=== PATIENT | female | born 1980 | race Caucasian/White ===

== ENCOUNTER 2022-07-04 07:48 | Outpatient (REF) | payer MEDICAID, SELFPAY ==
--- NOTE | ~2022-07-04 | MM_ITS ---
EXAMINATION: MM SCREENING DIGITAL BREAST TOMOSYNTHESIS, BILATERAL CLINICAL INFORMATION: Screening. Asymptomatic. Age 41. No prior breast imaging. No known family history breast cancer. The lifetime risk of breast cancer based on the Tyrer-Cuzick Model is 11%. COMPARISON: None (current study represents initial baseline exam). TECHNIQUE: Digital breast tomosynthesis is performed in both the craniocaudal and mediolateral oblique views along with computer-aided detection (CAD). Synthesized 2D images are generated from the tomosynthesis. FINDINGS: There are scattered areas of fibroglandular density (ACR BI-RADS breast composition Category b). There are no significant masses, abnormal calcifications, or other abnormalities. The axilla and skin contours are unremarkable. MM/MM tomosynthesis screening BI IMPRESSION: No mammographic evidence of malignancy. ASSESSMENT: BI-RADS 1: Negative RECOMMENDATION: Routine annual mammography screening. This patients information was entered into a reminder system with a target due date for their next mammogram.
== END 2022-07-04 07:49 | disposition home or self-care (01) ==
LOC: HO.MAMMO 07:48
PROVIDERS: PCP Student in an Organized Health Care Education/Training Program; Visit Provider Student in an Organized Health Care Education/Training Program
DX: Z12.31 Encounter for screening mammogram for malignant neoplasm of breast (principal)
CPT/HCPCS: 77063; 77067

== ENCOUNTER 2022-07-30 13:58 | Outpatient (REF) | payer MEDICAID, SELFPAY ==
--- NOTE | ~2022-07-30 | XR_ITS ---
EXAMINATION: XR SACROILIAC JOINTS CLINICAL INFORMATION: Sacroiliitis. COMPARISON: None TECHNIQUE: AP and bilateral Judet views of the sacroiliac joints FINDINGS: Bones and soft tissues are normal. No fracture. Alignment is anatomic. Sacroiliac joint spaces are well-maintained without erosions or surrounding sclerosis. The bilateral hip joint spaces are well-maintained. A surgical clip is seen within the left hemipelvis. XR/XR sacroiliac joint min 3V IMPRESSION: Normal sacroiliac joints.
--- NOTE | ~2022-07-30 | XR_ITS ---
EXAMINATION: XR LUMBOSACRAL SPINE WITH OBLIQUES CLINICAL INFORMATION: Lumbar spondylosis without myelopathy or radiculopathy. COMPARISON: Radiographs dated 06/12/2011. TECHNIQUE: AP, both oblique, and lateral views of the lumbar spine. Lateral view of the lumbosacral junction. FINDINGS: Vertebral body heights are normal. There is a moderately severe thoracolumbar levoscoliosis. There is rightward disc space narrowing at L2-L3, with a 4 mm retrolisthesis. The remaining disc spaces are well-maintained. No acute fracture or spondylolisthesis is seen. There is no spondylolysis defect on the oblique views. There is multi-level mild thoracolumbar spondylosis. The posterior elements are intact. The paravertebral soft tissues are unremarkable. There are abdominal and pelvic surgical clips. XR/XR lumbar spine 6V w bending IMPRESSION: 1. A moderately severe thoracolumbar levoscoliosis is seen. 2. There is moderate degenerative disc disease at L2-L3. 3. No fracture or spondylolisthesis is seen. There is no spondylolysis defect. 4. There is multi-level mild thoracolumbar spondylosis.
== END 2022-07-30 13:59 | disposition home or self-care (01) ==
LOC: HO.XRAY 13:58
PROVIDERS: PCP Student in an Organized Health Care Education/Training Program; Visit Provider Nurse Practitioner Family
DX: M47.816 Spondylosis without myelopathy or radiculopathy, lumbar region (principal); M54.16 Radiculopathy, lumbar region; M46.1 Sacroiliitis, not elsewhere classified; M62.830 Muscle spasm of back; E66.01 Morbid (severe) obesity due to excess calories; Z68.41 Body mass index [BMI] 40.0-44.9, adult
CPT/HCPCS: 72114; 72202; 99202

== ENCOUNTER 2022-09-16 15:55 | Outpatient (REF) | payer MEDICAID, SELFPAY ==
--- NOTE | ~2022-09-16 | MR_ITS ---
MR LUMBAR SPINE WITHOUT CONTRAST CLINICAL INFORMATION: Spondylosis without myelopathy or radiculopathy. COMPARISON: Lumbar spine radiographs 07/30/2022. TECHNIQUE: MRI of the lumbar spine was obtained using routine sequences without contrast. 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 5 nonrib-bearing lumbar-type vertebral bodies. There is grade 1 retrolisthesis of L2 on L3 and L3 on L4. The vertebral body heights are maintained. There is moderate disc volume loss at L2-L3 and there is mild disc volume loss at L3-L4. Disc desiccation at both of these levels. The remaining discs remain well-hydrated. There Modic type I endplate signal changes at T10-T11 and L2-L3. No additional bone marrow edema. No acute fractures. Conus terminates at the T12 level. Extrarenal pelvis on the right side. No significant extraspinal soft tissue findings. L1-L2: Disc contour is normal. No central canal stenosis and no foraminal stenosis. L2-L3: There is a diffuse annular disc bulge with superimposed right and left paracentral disc protrusions contacting and resulting in mild mass effect on the traversing L3 nerve roots within the subarticular zones bilaterally. There are also right greater than left lateral disc protrusions resulting in moderate bilateral foraminal stenosis and mass effect on the extraforaminal L2 nerve roots bilaterally. L3-L4: There is a large soft left paracentral/left lateral disc protrusion resulting in compression of the traversing left L4 nerve root within the left subarticular zone and severe left-sided foraminal stenosis with compression of the exiting left L3 nerve root. L4-L5: There is a diffuse annular disc bulge and there is severe bilateral facet arthropathy and ligamentum flavum thickening. Narrowing of the central canal. Mild to moderate bilateral foraminal encroachment. Far right and left lateral disc osteophyte protrusions contact the extraforaminal L4 nerve roots bilaterally. L5-S1: Slight annular disc bulge. Bilateral facet arthropathy. No central canal stenosis and no foraminal stenosis. MR/MR lumbar spine wo con IMPRESSION: * There is transitional anatomy. 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 Please correlate with plain films prior to any percutaneous or surgical intervention. * At L2-L3, there are right and left paracentral disc protrusions contacting and resulting in mild mass effect on the traversing L3 nerve roots within the subarticular zones bilaterally. There are also right greater than left lateral disc protrusions resulting in moderate bilateral foraminal stenosis and mass effect on the extraforaminal L2 nerve roots bilaterally. * At L3-L4, there is a large soft left paracentral/left lateral disc protrusion resulting in compression of the traversing left L4 nerve root within the left subarticular zone and severe left-sided foraminal stenosis with compression of the exiting left L3 nerve root. * At L4-L5, far right and left lateral disc osteophyte protrusions contact the extraforaminal L4 nerve roots bilaterally.
== END 2022-09-16 15:56 | disposition home or self-care (01) ==
LOC: HO.MRI 15:55
PROVIDERS: Visit Provider Nurse Practitioner Family
DX: M47.816 Spondylosis without myelopathy or radiculopathy, lumbar region (principal); M41.85 Other forms of scoliosis, thoracolumbar region; M62.830 Muscle spasm of back
CPT/HCPCS: 72148

== ENCOUNTER → 2022-10-15 15:46 | Outpatient (BNVA) | payer MEDICAID, SELFPAY | PROVIDERS: PCP Student in an Organized Health Care Education/Training Program; Visit Provider Nurse Practitioner Family | DX: Z13.89 Encounter for screening for other disorder (principal) ==

== ENCOUNTER 2022-10-30 10:07 | Day surgery (SDC) | payer MEDICAID, SELFPAY ==
[2022-10-26 15:24] VITALS: BMI 45.5
--- NOTE | ~2022-10-30 | FL_ITS ---
EXAMINATION: XR FLUOROSCOPY WITH IMAGES CLINICAL INFORMATION: Low back pain. COMPARISON: None. TECHNIQUE: Fluoroscopy Supervised By: Dr. Patrick Garcias. Fluoroscopy Time: 0.6 minutes. Cumulative Dose: 13.5 mGy. DAP: 3.70 Gycm2. Images: 2. FINDINGS: There are 2 digital images obtained revealing needle positioned inferior to L3 vertebra with contrast opacifying left epidural space and posterior lateral soft tissues. FL/FL guidance in OR IMPRESSION: Fluoroscopy was provided to referring physician for pain management.
[2022-10-30 10:09] VITALS: BP 140/79; PULSE 98; RESP 20; TEMP 36.9; O2SAT 97
[2022-10-30] MEDS: Lactated Ringers 1,000 ML 50 ML IVCONT (10:32)
--- NOTE | 2022-10-30 10:43 | P.CONAN_ITS ---
HPI - Anesthesia Eval Consult details Narrative: 41 yr old morbidly obese femalefor [facility] Active Problems Active Problems: All Active Problems (Updated 10/26/22 @ 15:22 by Tri Meyers RN) Lumbar spondylosis (Acute) Left lumbar radiculopathy (Acute) Sacroiliitis (Acute) Muscle spasm of back (Acute) Morbid obesity with BMI of 40.0-44.9, adult (Acute) Levoscoliosis of thoracolumbar spine (Acute) Spinal stenosis of lumbar region without neurogenic claudication (Acute) Past Medical History Medical History (Updated 10/26/22 @ 15:22 by Tri Meyers RN) GERD (gastroesophageal reflux disease) Hiatal hernia Hypothyroidism Left hip pain Low back pain Family History Family history of problems with anesthesia: No Surgical History Surgical History (Updated 10/26/22 @ 15:22 by Tri Meyers RN) History of carpal tunnel release of both wrists Hx of bariatric surgery Hx of cholecystectomy Hx of tubal ligation History of Problems with Anesthesia: No Social History Social History Are you a primary day care provider to a significant other at home: Yes (16 month old child) Do you presently have visiting nurse or other home services: No Patient Tobacco Use Status: Never used Tobacco Use of substances other than those prescribed or required for medical reasons: No Have you been hit, kicked, punched, or otherwise hurt by someone within the past year? If so, by whom?: No Are you DNR?: No Advance Directives: No Advance Directives Information Provided: Yes Advance Directives on File: No Recently lost weight without trying: No Nutrition Risks: No Nutritional Risk Patient : No FDLMP: 10/14/2022 : No Poor oral hygiene: No Meds Allergies Allergy/AdvReac Type Severity Reaction Status Date / Time No Known Allergies Allergy Verified 10/26/22 15:22 Active Medications: Current Medications Lactated Ringer's (Lr) 1,000 mls @ 50 mls/hr IVCONT .Q20H KAIN Last Admin: 10/30/22 10:32 Dose: 50 mls/hr Home Medications Medication Instructions Recorded Confirmed Last Taken Type levothyroxine 200 mcg tablet 200 mcg PO DAILY 07/30/22 10/26/2223 History levothyroxine 50 mcg tablet 50 mcg PO DAILY 07/30/22 10/26/22 10/29/22 History Exam Exam Date and Time: October 30, 2022 1043 Height,Weight and Vital Signs: Height 5 ft 2 in Weight 112.945 kg Last Vital Signs Temp 98.5 F 10/30/22 10:09 Pulse 98 10/30/22 10:09 Resp 20 10/30/22 10:09 BP 140/79 H 10/30/22 10:09 Pulse Ox 97 10/30/22 10:09 O2 Del Method 10/30/22 10:09 Airway Mallampati Class: II TM Dist: >3cm Neck ROM: Full Heart: rrr Lungs: cta Assessment and Plan Assessment Anesthesia Assessment: Anesthesia Plan Discussed and Chart Reviewed Final Anesthetic Review Family History of Problems with Anesthesia: No History of Problems with Anesthesia: No NPO: Yes ASA Class: II Final Preanesthetic Review: No Changes in Pt Med Stat, Meds/Allgs Chart Reviewed, Consent Obtained/Reviewed and Anes Risks/Benef Reviewed Patient Risk: Low Procedure Risk: Low Anesthetic Plan Anesthetic Plan: MAC: and Agree w/ Assess. and Plan Disposition: Standard PACU
--- NOTE | 2022-10-30 10:52 | MHC.SHP ---
Pre-Procedural Eval Section A Date of Service: 10/30/22 The patient is an INPATIENT: No Changes since office visit: Yes Patient answered all questions The History & Physical has been completed within 30 days and I have reviewed it.: No Section B Chief Complaint: Radiculopathy, lumbar region Details of Present Illness: as above Relevant Family History (Specify if Yes): No Relevant Social History: None Present Medications: None Medical History: No relevant PMH History of Previous Operations: No relevant previous surgery Allergies: Allergies Allergy/AdvReac Type Severity Reaction Status Date / Time No Known Allergies Allergy Verified 10/26/22 15:22 Review of Systems Sugical H&P ROS: Negative: Constitution, Cardiovascular, Respiratory, Neurological, Psychiatric, Hem-Onc, Allergic/Immunologic, Gastrointestinal, Genitourinary, Musculoskeletal, Integumentary, Endocrine and Eyes/Ears/Nose/Throat Exam Surgical H&P Exam: Normal: HEENT, Normal: Heart, Normal: Lungs, Normal: Extremities, Normal: Abdomen, Normal: Skin and Normal: Neurological Plan Diagnosis/Plan: Unchanged I have reviewed the history and physical and performed a pertinent physical examination on my patient. No changes have occurred unless specified. Time Spent With Patient Time: Total time managing care of this patient today ____ minutes.
--- NOTE | 2022-10-30 10:54 | W.PM.OPN ---
Operative Note Operative Note Date of Service: 10/30/22 Narrative: Transforaminal Left L3- L4 epidural steroid injection ? Informed consent was thoroughly explained to the patient before the procedure.? The patient came to the operating room.? She was positioned prone on operating table with a pillow under her abdomen.? Time-out was performed delineating correct site and side of the procedure, nature of the injection, name and date of of the patient. ASA monitors were applied and the patient was minimally sedated. ? The lower back of the patient was prepped with ChloraPrep and draped with sterile utility towels.? C-arm was brought over the operating field and sq picture of [id number] was demonstrated on the screen.?Transitional anatomy was noted with hypoplastic ribs at T12 as dictated in the patient's MRI. The left side was chosen as the side of the injection.The square image of L3 vertebra was demonstrated on the screen.? Tilting machine ipsilateral to the left at the level of L3 1st the most prominent picture of the left L3 pedicle was obtained on the screen.? 3 mm below the level of the lowest point of the pedicle projection to the skin small amount of lidocaine 1% 3-4 cc was injected to anesthetize the skin.? After that 5 inch 22 gauge Quincke point needle was inserted through the skin wheal and was advanced to the L3- L4 foramina on anterior posterior, Lateral and oblique views intermittently in tunnel vision fashion..? When tip of the needle entered most superior lateral portion of the foramina projection on the lateral view, the C-arm was returned to AP view, aspiration was performed demonstrating no blood and no CSF aspirate. injection of the contrast was performed demonstrating epidural and perineural spread of the contrast, Live contrast injection spread was observed on the screen and no intrathecal and no vsular run-off of the contrast was noted..? After that injection of the treatment medicine 4 cc of lidocaine 1% preservative-free mixed with Kenalog 40 mg was injected into the foramina.? Injection of the contrast and injection of the treatment medicine was observed live on the screen.? No intrathecal and no intravascular spread of the contrast was noted. ? Upon completion of the procedure sterile Band-Aids were applied. The patient tolerated procedure well exhibited NO neurological deficits postoperatively in PACU.
[2022-10-30 11:47] VITALS: BP 118/69; PULSE 86; RESP 17; TEMP 36.8; O2SAT 100
--- NOTE | 2022-10-30 11:52 | P.BOP_ITS ---
Brief Operative Note Date of Service: 10/30/22 Pre-op diagnosis: spondylosis with radiculopathy Post-op diagnosis: same Procedure: transforaminal epidural steroid injection L3- L4 on the left. Surgeon: Patrick Garcias MD Anesthesia: MAC and local Was an Casing Running Machine Tender used for this Procedure?: No Estimated blood loss (mL): 0 Condition: stable Disposition: PACU
[2022-10-30 12:02] VITALS: BP 124/68; PULSE 81; RESP 18; O2SAT 100
[2022-10-30 12:16] VITALS: BP 132/67; PULSE 80; RESP 18; TEMP 36.7; O2SAT 98
== END 2022-10-30 13:14 | disposition home or self-care (01) ==
PROVIDERS: PCP Student in an Organized Health Care Education/Training Program; Visit Provider Anesthesiology
PROC: (CPT 64483; principal; 2022-10-30 11:10)
DX: M47.816 Spondylosis without myelopathy or radiculopathy, lumbar region (principal); M46.1 Sacroiliitis, not elsewhere classified; M62.830 Muscle spasm of back; M41.85 Other forms of scoliosis, thoracolumbar region; M48.061 Spinal stenosis, lumbar region without neurogenic claudication; M54.16 Radiculopathy, lumbar region; E66.01 Morbid (severe) obesity due to excess calories; Z68.41 Body mass index [BMI] 40.0-44.9, adult; Z98.84 Bariatric surgery status
CPT/HCPCS: 64483; J2795; J3301; Q9967

== ENCOUNTER → 2022-12-03 15:13 | Outpatient (BNVA) | payer MEDICAID, SELFPAY | PROVIDERS: PCP Student in an Organized Health Care Education/Training Program; Visit Provider Nurse Practitioner Family | DX: M47.26 Other spondylosis with radiculopathy, lumbar region (principal); M46.1 Sacroiliitis, not elsewhere classified; M62.830 Muscle spasm of back; M41.85 Other forms of scoliosis, thoracolumbar region; M48.061 Spinal stenosis, lumbar region without neurogenic claudication | CPT/HCPCS: 99212 ==

== ENCOUNTER 2023-01-27 13:18 | Day surgery (SDC) | payer MEDICAID, SELFPAY ==
[2023-01-25 14:45] VITALS: BMI 39.6
--- NOTE | 2023-01-26 10:27 | HO.ANESPROP2 ---
HPI - Anesthesia Eval Consult details Narrative: 42yo F for Left therapeutic Sacroiliac Joint Steroid Injection s/p epidural injection 10/2022 with MAC PMFSH Active Problems Active Problems: All Active Problems (Updated 12/03/22 @ 15:57 by MESSI Reyes) Lumbar spondylosis (Acute) Left lumbar radiculopathy (Acute) Sacroiliitis (Acute) Muscle spasm of back (Acute) Levoscoliosis of thoracolumbar spine (Acute) Spinal stenosis of lumbar region without neurogenic claudication (Acute) Past Medical History Medical History GERD (gastroesophageal reflux disease) Hiatal hernia Hypothyroidism Left hip pain Low back pain Morbid obesity with BMI of 40.0-44.9, adult Family History Family history of problems with anesthesia: No Surgical History Surgical History (Updated 01/27/23 @ 13:27 by Char Saucedo, RN) History of carpal tunnel release of both wrists Hx of bariatric surgery Hx of section Hx of cholecystectomy Hx of tubal ligation History of Problems with Anesthesia: No Social History Social History Are you a primary emergency care attendant to a significant other at home: Yes (16 month old child) Do you presently have visiting nurse or other home services: No Patient Tobacco Use Status: Never used Tobacco Meds Allergies Allergy/AdvReac Type Severity Reaction Status Date / Time No Known Allergies Allergy Verified 01/27/23 13:32 Home Medications Medication Instructions Recorded Confirmed Last Taken Type levothyroxine 200 mcg tablet 200 mcg PO DAILY 07/30/22 01/27/23 01/27/23 06:00 History levothyroxine 50 mcg tablet 50 mcg PO DAILY 07/30/22 01/27/23 01/27/23 06:00 History magnesium glycinate 100 mg tablet 200 mg PO DAILY PRN Muscle Spasm 01/27/23 01/27/23 Unknown History Exam Exam Date and Time: January 26, 2023 1027 Height,Weight and Vital Signs: Height 5 ft 2 in Weight 98.203 kg Assessment and Plan Assessment Anesthesia Assessment: Chart Reviewed Final Anesthetic Review Family History of Problems with Anesthesia: No History of Problems with Anesthesia: No
--- NOTE | ~2023-01-27 | FL_ITS ---
EXAMINATION: XR FLUOROSCOPY WITH IMAGES CLINICAL INFORMATION: Therapeutic SI joint injection. COMPARISON: None available. TECHNIQUE: Fluoroscopy Supervised By: Dr. Colby Whitfield. Fluoroscopy Time: 0.3 minutes. Cumulative Dose: 10.5 mGy. DAP: 1.15 Gycm2. Images: 2. FINDINGS: Images show a needle at the level of the left sacral ala. FL/FL guidance in OR IMPRESSION: Technical assistance and equipment provided by the Department of Radiology during procedural fluoroscopy, as above. Please see procedure report for further details.
[2023-01-27 13:28] VITALS: BMI 38.2
[2023-01-27 13:34] VITALS: BP 128/53; PULSE 71; RESP 16; TEMP 36.4; O2SAT 98
[2023-01-27] MEDS: Lactated Ringers 1,000 ML 100 ML IVCONT (13:48)
--- NOTE | 2023-01-27 15:13 | MHC.SHP ---
Pre-Procedural Eval Section A Date of Service: 01/27/23 The patient is an INPATIENT: No Changes since office visit: Yes Patient answered all questions The History & Physical has been completed within 30 days and I have reviewed it.: Yes Section B Chief Complaint: Sacroiliitis, not elsewhere classified Relevant Family History (Specify if Yes): No Relevant Social History: None Present Medications: see Short Stay Collaborative assessment Medical History: No relevant PMH History of Previous Operations: No relevant previous surgery Allergies: Allergies Allergy/AdvReac Type Severity Reaction Status Date / Time No Known Allergies Allergy Verified 01/27/23 13:32 Review of Systems Sugical H&P ROS: Negative: Constitution, Cardiovascular and Respiratory Exam Surgical H&P Exam: Normal: HEENT and Normal: Heart Plan Diagnosis/Plan: Unchanged I have reviewed the history and physical and performed a pertinent physical examination on my patient. No changes have occurred unless specified. Time Spent With Patient Time: Total time managing care of this patient today ____ minutes.
--- NOTE | 2023-01-27 15:13 | PM.OP ---
Brief Operative Note Date of Service: 01/27/23 Pre-op diagnosis: Sacroiliitis Post-op diagnosis: same Procedure: Left sacroiliac joint steroid injection Implants: None Surgeon: Colby Whitfield MD Anesthesia: MAC Was an Multimedia Developer used for this Procedure?: No Estimated blood loss (mL): 0 Pathology: none sent Condition: stable Disposition: PACU
--- NOTE | 2023-01-27 15:14 | P.OP_ITS ---
Operative Note Operative Note Date of Service: 01/27/23 Narrative: Sacroiliac Joint Injection, Left The procedure, its benefits, and its risks were explained and written informed consent was obtained from the patient. Immediately prior to starting the procedure, a time-out safety check was conducted. The patient's identification, procedure name, procedure site, and procedure laterality were confirmed with the patient. ? Patient was placed prone on the fluoroscopy table and the lumbosacral area was prepped using ChloraPrep and draped with sterile drapein standard fashion. Patient was sedated by the property underwriter. The C-arm was rotated in a contralateral oblique fashion until the medial border of the iliac crest no longer foreshadowed the posterior sacroiliac joint line. The skin and subcutaneous tissue was anesthetized using 1 mL of 0.75% plain lidocaine with 1.5-inch 25- gauge needle in the middle region of the joint line.? A 3.5-inch 22-gauge spinal needle with small bend on the tip was slowly advanced towards the joint line, coaxial to the x-ray beam. Once bony content was obtained, the needle was easily slid into the intra-articular space.? Intra-articular needle position was confirmed using lateral fluoroscopy.? A total volume of 2.5mL of solution cont aining 60 mg Depomedrol and rest 0.5% of ropivacaine was injected intra- articularly. The stylet was reinserted and needle was removed. The patient tolerated the procedure well. She was brought to the PACU in stable condition. Patient denied any lower extremity weakness or numbness. Patient was observed for 30 min and was discharged after fulfilling the standard discharge criteria.
[2023-01-27 15:20] VITALS: BP 123/68; PULSE 73; RESP 16; TEMP 36.1; O2SAT 95
[2023-01-27 15:35] VITALS: BP 136/72; PULSE 60; RESP 14; TEMP 36.6; O2SAT 97
--- NOTE | 2023-01-27 15:35 | HO.POSTANES ---
Post Anesthesia Evaluation Post Anesthesia Evaluation Vital Signs: Vital Signs Temp Pulse Resp BP Pulse Ox O2 Del Method 01/27/23 15:20 97 F 73 16 123/68 95 Room Air 01/27/23 13:34 97.6 F 71 16 128/53 L 98 Room Air Anesthesia: Monitored Mental Status: Awake Pain Control: Satisfactory Nausea/Vomiting: None Hydration: Adequate Anesthesia-Related Issues: No Anes. Related Issues
== END 2023-01-27 16:00 | disposition home or self-care (01) ==
PROVIDERS: PCP Student in an Organized Health Care Education/Training Program; Visit Provider Internal Medicine
PROC: 3E0U33Z Introduction of Anti-inflammatory into Joints, Percutaneous Approach (ICD-10-PCS; CPT 27096; principal; 2023-01-27 14:20)
DX: M46.1 Sacroiliitis, not elsewhere classified (principal); M47.26 Other spondylosis with radiculopathy, lumbar region; M48.061 Spinal stenosis, lumbar region without neurogenic claudication
CPT/HCPCS: 27096; J1040

== ENCOUNTER → 2023-03-04 13:55 | Outpatient (BNVA) | payer MEDICAID, SELFPAY | PROVIDERS: PCP Student in an Organized Health Care Education/Training Program; Visit Provider Nurse Practitioner Family | DX: M47.26 Other spondylosis with radiculopathy, lumbar region (principal); M46.1 Sacroiliitis, not elsewhere classified; M41.85 Other forms of scoliosis, thoracolumbar region; M48.061 Spinal stenosis, lumbar region without neurogenic claudication; M62.830 Muscle spasm of back; E66.01 Morbid (severe) obesity due to excess calories; Z68.39 Body mass index [BMI] 39.0-39.9, adult; Z98.84 Bariatric surgery status; Z98.890 Other specified postprocedural states | CPT/HCPCS: 99212 ==

== ENCOUNTER 2023-07-10 07:35 | Outpatient (REF) | payer OTHER, SELFPAY | END 2023-07-10 07:36 | disposition home or self-care (01) | LOC: HO.MAMMO 07:35 | PROVIDERS: PCP Student in an Organized Health Care Education/Training Program; Visit Provider Student in an Organized Health Care Education/Training Program | DX: Z12.31 Encounter for screening mammogram for malignant neoplasm of breast (principal) | CPT/HCPCS: 77063; 77067 ==

== ENCOUNTER → 2023-07-10 07:45 | Outpatient (BNV) | payer SELFPAY | PROVIDERS: PCP Student in an Organized Health Care Education/Training Program; Visit Provider Radiology Diagnostic Radiology | DX: Z12.31 Encounter for screening mammogram for malignant neoplasm of breast (principal) | CPT/HCPCS: 77063; 77067 ==

== ENCOUNTER 2023-07-16 13:04 | Outpatient (AMB) | payer MEDICAID, SELFPAY ==
--- NOTE | 2023-07-16 13:08 | A.OFFVIS_ITS ---
Intake Intake Visit Reasons: radiculopathy Graduate Civil Engineer Required: No Allergies No Known Allergies Allergy (Verified 03/04/23 14:09) [facility] Medical History (Updated 03/05/23 @ 08:47 by MESSI Reyes) Left hip pain Low back pain Hypothyroidism Hiatal hernia GERD (gastroesophageal reflux disease) Morbid obesity with BMI of 40.0-44.9, adult Surgical History (Updated 03/05/23 @ 08:53 by MESSI Reyes) Hx of section History of carpal tunnel release of both wrists Hx of bariatric surgery Hx of cholecystectomy Hx of tubal ligation Social History Are you a primary director day care center to a significant other at home: Yes (16 month old child) Do you presently have visiting nurse or other home services: No Patient Tobacco Use Status: Never used Tobacco Assessment & Plan Assessment & Plan (1) Sacroiliitis: Code(s): M46.1 - Sacroiliitis, not elsewhere classified (2) Left lumbar radiculopathy: Code(s): M54.16 - Radiculopathy, lumbar region Plan Dear Bruna, Thank you for referring Mrs Bean to our office today. She is a 42-year-old female who reports that she began experiencing left-sided low back pain along the upper edge of her left buttock about 2 years ago during her last . The pain was significantly intense and is only continued to get worse since that . She also reports some pain that radiates down her posterior buttock into her posterior lateral thigh. It was radiating down into her foot until she underwent an SI joint block and that helped relieve about 50% of the pain and also relieved a significant amount of pain that was going down from her knee into her foot. She tried an L3-4 TFE and that did not give her any relief with the exception of some mild relief of her back discomfort. The worst position for her is sitting, and she will get up and move around and that seems to provide some help. However, if she does prolonged walking she will have to sit down because of the pain. She does get some numbness on the left side of her low back over the SI joint but nothing going down into her leg. She has not recently done any physical therapy just a cortisone injections. She has taken Tylenol, Motrin all the other typical tzeg-fwh-irsyoai medicines and these do not do anything. Sleeping at night can be difficult. Getting in and out of a car is very difficult. She feels like she is 90 years old when she tried to get out and has a lot of difficulty standing and walking afterwards. She is here today to see us because she had an MRI done at [facility] showing lateral disc herniation at L3-4. PMH: History of hypothyroidism, 3 C sections, cholecystectomy, gastric sleeve, carpal tunnel, obesity Social hx: She does not smoke Medications: Levothyroxine and kbaw-bpy-nvvxylz medications as needed Allergies: None Physical exam: She is awake alert oriented no acute distress, she is able to get up on examining table on her own. When she is sitting in the chair she leans off to the right side. She has positive VIOLA sign and I am able to reproduce the exact pain she is describing on a daily basis with this maneuver. Positive finger Liban test. No weakness or reflex changes. Gait is normal. Straight leg raise test is negative. Imaging review: She has a lumbar MRI done at [facility] showing a far lateral disc at L3-4 compressing the left L3 nerve and possibly slightly the traversing left L4 nerve root. Outside of that the discs otherwise look okay. There is a x-ray done in 2021 at [facility] showing a significant scoliosis at the thoracolumbar junction. Impression: 42-year-old female who reports left-sided low back pain going into her left hip and into her posterior thigh lateral thigh which started around the time she was carrying her last child about 2 years ago. The worst position for her is being seated. If she gets up and moves around throughout the day she will feel some discomfort but is able to generally deal with it. Laying down at night on her left side or being seated for any length of time is brutal. Getting in and out of a car is difficult. She did have a nice reaction to the SI joint injection in the sense that it did take away a lot of the distal leg pain but she still has the posterior lateral thigh pain. In terms of a diagnosis, I think the situation is a bit complicated in that she does have multiple things which could explain her pain. Certainly this could be an IT band or SI joint situation as I am able to reproduce all the pain with VIOLA testing. Straight leg raise testing was negative, and she does not have classic dermatomal distribution in the L3 or L4 dermatome but she does have the disc herniation on the left primarily in the far lateral component of the disc at L3- 4. She did not have a good response to the TFE with the leg pain. It did help her back pain out slightly however. I will review her situation with Dr. Sadler and see if he has any other thoughts but it does not sound to me like this is classic nerve radicular pain in that it is easily reproduced with VIOLA testing, worse with being seated and she did have a decent response to an SI joint injection but no positive response to the TFC.. Thank you for allowing us to care for your patient. The total time spent with this visit with this patient was 45 minutes reviewing history, physical exam, lumbar imaging review, and implementation of treatment plan or further diagnostic testing Cedrick Sadler MD,PhD [facility] Coding Level of Care Code New Pt Level 4 (50930) Diagnoses Sacroiliitis M46.1 Left lumbar radiculopathy M54.16
== END 2023-07-16 13:38 | disposition home or self-care (01) ==
PROVIDERS: PCP Student in an Organized Health Care Education/Training Program; Referring Provider Nurse Practitioner Family; Visit Provider Physician Assistant
DX: M46.1 Sacroiliitis, not elsewhere classified (principal); M54.16 Radiculopathy, lumbar region
CPT/HCPCS: 99204

== ENCOUNTER → 2023-07-16 13:04 | Outpatient (BNVA) | payer SELFPAY | PROVIDERS: PCP Student in an Organized Health Care Education/Training Program; Referring Provider Nurse Practitioner Family; Visit Provider Physician Assistant | DX: M46.1 Sacroiliitis, not elsewhere classified (principal); M54.16 Radiculopathy, lumbar region | CPT/HCPCS: 99212 ==

== ENCOUNTER 2024-07-15 07:25 | Outpatient (REF) | payer SELFPAY ==
--- NOTE | ~2024-07-15 | MM_ITS ---
EXAMINATION: MM SCREENING DIGITAL BREAST TOMOSYNTHESIS, BILATERAL CLINICAL INFORMATION: Screening. Asymptomatic. COMPARISON: Mammography: Comparison is made with available priors TECHNIQUE: Digital breast mammography with tomosynthesis is performed in both the craniocaudal and mediolateral oblique views along with computer-aided detection (CAD). FINDINGS: There are scattered areas of fibroglandular density (ACR BI-RADS breast composition Category b). There are no significant masses, abnormal calcifications, or other abnormalities. MM/MM tomosynthesis screening BI IMPRESSION: No mammographic evidence of malignancy. ASSESSMENT: BI-RADS BI-RADS 1 - Negative RECOMMENDATION: Routine annual mammography screening. 1 year F/U This examination should not preclude the clinical evaluation of a suspicious palpable abnormality. This patient's information was entered into a reminder system with a target due date for their next mammogram. Electronically signed by: Camila Donovan DO 07/28/2024 10:08 AM TATY
== END 2024-07-15 07:26 | disposition home or self-care (01) ==
LOC: HO.MAMMO 07:25
PROVIDERS: PCP Student in an Organized Health Care Education/Training Program; Visit Provider Student in an Organized Health Care Education/Training Program
DX: Z12.31 Encounter for screening mammogram for malignant neoplasm of breast (principal)
CPT/HCPCS: 77063; 77067

== ENCOUNTER → 2024-07-15 07:30 | Outpatient (BNV) | payer SELFPAY | PROVIDERS: PCP Student in an Organized Health Care Education/Training Program; Visit Provider Internal Medicine | DX: Z12.31 Encounter for screening mammogram for malignant neoplasm of breast (principal) | CPT/HCPCS: 77063; 77067 ==

== ENCOUNTER 2024-08-09 09:44 | Outpatient (REF) | payer OTHER, SELFPAY ==
[2024-08-09 14:53] LABS: Alanine Aminotransferase 15 U/L (0-31); Alkaline Phosphatase 78 U/L (39-117); Anion Gap 11 (12-20); Aspartate Amino Transferase 35 U/L (5-31); Bilirubin Direct 0.1 mg/dL (0.0-0.5); Bilirubin Total 0.3 mg/dL (0.0-1.0); Blood Urea Nitrogen 13 mg/dL (9-16); Calcium 9.6 mg/dL (8.4-10.2); Carbon Dioxide 29 mmol/L (22-29); Chloride 102 mmol/L (96-108); Cholesterol 164 mg/dL (<200); Estimated Glomerular Filt Rate > 60; Glucose Random 81 mg/dL (60-115); HDL Cholesterol 41 mg/dL (>40); LDL Cholesterol Calculated 88 mg/dL (<100); Potassium 3.7 mmol/L (3.3-5.1); Sodium 138 mmol/L (135-145); Total Protein 7.7 g/dL (6.5-8.0); Triglycerides 175 mg/dL (<150)
[2024-08-09 15:09] LABS: TSH reflex Free T4 13.45 uIU/mL (0.32-4.0)
[2024-08-10 08:08] LABS: HIV AB/AG Nonreactive (Nonreactive); HIV Num 1 0.06 S/CO (0.00-0.99); ~HepC Num1 0.22 S/CO (0.00-0.79); ~Hepatitis C Antibody Nonreactive (Nonreactive)
== END 2024-08-09 09:45 | disposition home or self-care (01) ==
LOC: HO.CHCLDS 09:44
PROVIDERS: Visit Provider Student in an Organized Health Care Education/Training Program
DX: Z00.00 Encounter for general adult medical examination without abnormal findings (principal); E03.9 Hypothyroidism, unspecified; E66.812 Obesity, class 2; Z68.39 Body mass index [BMI] 39.0-39.9, adult; E66.01 Morbid (severe) obesity due to excess calories
CPT/HCPCS: 36415; 80048; 80061; 80076; 84439; 84443; 86803; 87389

== ENCOUNTER 2025-03-26 09:40 | Outpatient (REF) | payer OTHER, SELFPAY ==
--- OUTSIDE RECORDS SUMMARY | 2025-03-26 10:06 | XMS_ITS | Clinical Summary ---
Author Organization [facility] Address [address] [place] [address] Care Team Providers Care Senior Microsoft Net Developer Name Role Phone Unavailable Primary Care Provider Unavailabl e Social History Tobacco Use Types Packs/Day Years Used Date Smoking Tobacco: Never Assessed Comments Unknown Sex and Gender Information Value Date Recorded Sex Assigned at Not on file Legal Sex Female 8:59 AM EST Gender Identity Not on file Sexual Orientation Not on file Plan of Treatment Health Maintenance Due Date Last Done Comments Breast Cancer Screening 1978 DTaP,Tdap,and Td Vaccines (1 - Tdap) 1997 Hepatitis B Vaccines (1 of 3 - 19+ 3-dose series) 1997 Cervical Cancer Screening: P ap Smear 1999 COVID-19 Vaccine (2023-2 5 season) 2024 Influenza Vaccine (Season Ended) 2025 HIB Vaccines Aged Out No longer eligi ble based on patient's age to complete this topic HPV Vaccines Aged Out No longer eligi ble based on patient's age to complete this topic Hepatitis A Vaccines Aged Out No long er eligible based on patient's age to complete this topic IPV Vaccines Aged Out No longer eligi ble based on patient's age to complete this topic MMR Vaccines Aged Out No longer eligi ble based on patient's age to complete this topic Meningococcal ACWY Vaccine Aged Out N o longer eligible based on patient's age to complete this topic Meningococcal B Vaccine Aged Out No l onger eligible based on patient's age to complete this topic Pneumococcal Vaccine: Pediat rics (0 to 5 Years) and At-Risk Patients (6 to 64 Years) Aged Out No longer eligible b ased on patient's age to complete this topic RSV Immunization Patients Un destiny 20 months Aged Out No longer eligible b ased on patient's age to complete this topic Varicella Vaccines Aged Out No longer eligible based on patient's age to complete this topic
[2025-03-26 15:33] LABS: TSH reflex Free T4 7.64 uIU/mL (0.32-4.0)
[2025-03-26 16:24] LABS: Free T4 (Free Thyroxine) 1.13 ng/dL (0.71-1.85)
== END 2025-03-26 09:41 | disposition home or self-care (01) ==
LOC: HO.CHCLDS 09:40
PROVIDERS: Visit Provider Student in an Organized Health Care Education/Training Program
DX: E03.9 Hypothyroidism, unspecified (principal)
CPT/HCPCS: 36415; 84439; 84443

== ENCOUNTER 2025-04-05 09:30 | Outpatient (REF) | payer OTHER, SELFPAY ==
--- OUTSIDE RECORDS SUMMARY | 2025-04-05 09:59 | XMS_ITS | Clinical Summary ---
Author Organization [facility] Address [address] [place] [address] Care Team Providers Care Admission Specialist Name Role Phone Unavailable Primary Care Provider [...] Vaccine (2023-2 5 season) 2024 Influenza Vaccine (#1) 2025 HIB Vaccines Aged Out No longer [...] 5 Years) and At-Risk Patients (6 to 49 Years) Aged Out No longer eligible b ased on patient's age to complete this topic RSV Immunization Patients Un destiny 20 months Aged Out No longer eligible b ased on patient's age to complete this topic Varicella Vaccines Aged Out No longer eligible based on patient's age to complete this topic
--- OUTSIDE RECORDS SUMMARY | 2025-04-05 09:59 | XMS_ITS | Encounter Summary ---
Author Organization [employer] [facility] Address [address] [place] [address] Care Team Providers Care Tradeshow Worker Name Role Phone Ruth Ontiveros MD Primary Care Provider Reason for Visit * Reason Comments Med Refill Encounter Details Date Type Department Care Team (Late Contact Info) Description 11/03/2022 Refill [facility] [address] [place] [address] Ruth Ontiveros MD [address] [place] [address] Social History Tobacco Use Types Packs/Day Years Used Date Smoking Tobacco: Never Assessed Comments Unknown Sex and Gender Information Value Date Recorded Sex Assigned at Female 07/27/2022 10:21 AM EDT Legal Sex Female 10:21 AM EDT Gender Identity Choose not to disclose 10:21 AM EDT Sexual Orientation Choose not to disclose 2021 10:21 AM EDT documented as of this encounter Plan of Treatment Upcoming Encounters Date Type Department Care Team (Late Contact Info) Description 04/16/2025 8:45 AM EDT Office Visit [facility] [address] [place] [address] Ruth Ontiveros MD [address] [place] [address] documented as of this encounter Visit Diagnoses Not on filedocumented in this encounter Care Teams Tradeshow Worker Relationship Specialty Start Date End Date Ruth Ontiveros MD [address] [place] [address] PCP - General Family Medicine 10/04/13 documented as of this encounter
[2025-04-05 12:11] LABS: Hemoglobin A1C 130.7487 umol/L; Total Hemoglobin (HGBA1C) 3737.6277 umol/L
[2025-04-05 12:30] LABS: HBS Num1 103.01 mIU/mL (0-7.99); HBc Num1 0.08 S/CO (0.00-0.79); HBsAGNum1 0.33 S/CO (0.00-0.99); Hepatitis B Surface Antigen Negative (Negative); ~Hepatitis B Surface Antibody REACTIVE (Nonreactive)
== END 2025-04-05 09:31 | disposition home or self-care (01) ==
LOC: HO.HHCL 09:30
PROVIDERS: PCP Student in an Organized Health Care Education/Training Program; Visit Provider Advanced Practice Midwife
DX: Z11.59 Encounter for screening for other viral diseases (principal); B37.2 Candidiasis of skin and nail
CPT/HCPCS: 36415; 83036; 86704; 86706; 87340

== ENCOUNTER 2025-04-20 08:40 | Outpatient (REF) | payer OTHER, SELFPAY ==
--- OUTSIDE RECORDS SUMMARY | 2025-04-20 08:49 | XMS_ITS | Clinical Summary ---
Author Organization [facility] Address [address] [place] [address] Care Team Providers Care Auction Block Clerk Name Role Phone Unavailable Primary Care Provider [...] 1999 COVID-19 Vaccine (2023-2 5 season) 2024 Depression Screening 09/27/2024 Influenza Vaccine (#1) 2025 HIB Vaccines Aged [...]
--- OUTSIDE RECORDS SUMMARY | 2025-04-20 08:49 | XMS_ITS | Encounter Summary ---
Author Organization [employer] Address [address] [place] [address] [address] [place] [address] Care Team Providers Care Annealing Operator Name Role Phone Ruth Ontiveros MD Primary Care Provider Reason for Visit * Reason Comments Med Refill Encounter Details Date Type Department Care Team (Late st Contact Info) Description 11/03/2022 Refill [facility] [address] [place] [address] Ruth Ontiveros MD [address] [place] [address] Social History Tobacco Use Types Packs/Day Years Used Date Smoking Tobacco: Never Assessed Comments Unknown Sex and Gender Information Value Date Recorded Sex Assigned at Female 07/27/2022 10:21 AM EDT Legal Sex Female 10:21 AM EDT Gender Identity Choose not to disclose 10:21 AM EDT Sexual Orientation Choose not to disclose 2021 10:21 AM EDT documented as of this encounter Plan of Treatment Not on file documented as of this encounter Visit Diagnoses Not on filedocumented in this encounter Care Teams Annealing Operator Relationship Specialty Start Date End Date Ruth Ontiveros MD [address] [place] [id number] PCP - General Family Medicine 10/04/13 documented as of this encounter
[2025-04-20 15:25] LABS: Free T4 (Free Thyroxine) 0.92 ng/dL (0.71-1.85)
== END 2025-04-20 08:41 | disposition home or self-care (01) ==
LOC: HO.CHCLDS 08:40
PROVIDERS: Visit Provider Student in an Organized Health Care Education/Training Program
DX: E03.9 Hypothyroidism, unspecified (principal)
CPT/HCPCS: 36415; 84439; 84443

== ENCOUNTER 2025-06-26 14:07 | Outpatient (AMB) | payer OTHER, SELFPAY ==
--- NOTE | 2025-06-26 14:33 | MHC.OFFVIS ---
Vital Signs 06/26/25 14:37 Height 5 ft 2 in Weight 209 lb BMI 38.2 Intake Visit Reasons: New Patient - Left Hand Small Finger Mass Intake Note: Chet is a 44 year old right hand dominant female who presents today as a new patient with complaints of a mass at the base of her Left Small Finger. Patient reports that this has been present for about 2 months now and is increasing in size which is causing discomfort with movement of finger. She does not recall any injury however she mentions that she traveled to [place] in April and was helping with a constitution party for family member, stating mass presented once she returned back home. No numbness or tingling. Allergies No Known Allergies Allergy (Verified 06/26/25 14:40) HPI HPI New Patient - Left Hand Small Finger Mass: Details: Chet is a 44 year old right hand dominant woman who presents for a left small finger mass. She complains of a mass at the base of her small finger, which has been present for ~2 months. She says this is growing in size. She denies any injury and says this mass developed when she finished setting up for a [employer], and she is worried this was caused by overuse of her hands. She denies any locking, catching, numbness, or tingling. [facility] Medical History (Updated 06/26/25 @ 15:05 by Adriel Henry) Left hip pain Low back pain Hypothyroidism Hiatal hernia GERD (gastroesophageal reflux disease) Morbid obesity with BMI of 40.0-44.9, adult Surgical History Hx of section History of carpal tunnel release of both wrists Hx of bariatric surgery Hx of cholecystectomy Hx of tubal ligation Social History (Updated 06/26/25 @ 14:37 by CARROLL Anderson) Are you a primary animal care service worker to a significant other at home: Yes (16 month old child) Do you presently have visiting nurse or other home services: No Patient Tobacco Use Status: Never used Tobacco Current occupational status: employed Current occupation: clinician, right hand dominant Review of Systems Const All systems reviewed & are unremarkable except as noted in HPI and below Physical Exam Vital Signs: BMI result Body Mass Index 38.2 Const General: cooperative, healthy appearing and no acute distress Orientation/consciousness: patient oriented x3 HEENT Head: Yes normocephalic and Yes atraumatic Eyes EOM: EOMs intact bilaterally Resp Effort & Inspection: normal respiratory effort and able to speak in complete sentences Cardio Jugular venous distension: no JVD Skin General skin exam: turgor normal Rashes: no rashes Neuro General: patient oriented x3 Extrem Other: Evaluation of Left Upper Extremity: The patient is alert, oriented, and in no acute distress Neuro: Median, Ulnar, Radial nerves motor and sensory intact and sensation is normal to the tips of all digits Vascular: Cap refill brisk ROM: She can make a fist and extend all her digits No locking or catching Skin: No lacerations or abrasions. General: No Ecchymosis. No Erythema or evidence of infection. There is a mass on the volar aspect of the small finger just proximal to the PIP flexion crease radial of center, measuring ~6-7mm in diameter and appears fluid-filled. Slightly blue in color. Not particularly tender Psych Appearance: grossly normal Affect: normal affect Attitude: cooperative Office Procedures AMB Fracture Care Details: No fracture, aspiration Fracture Billing Code: Fracture Billing Code Assessment & Plan Assessment & Plan (1) Mass of finger of left hand: Comment: SF Code(s): R22.32 - Localized swelling, mass and lump, left upper limb Category: Medical Plan Assessment & plan: 1. Left small finger volar mass Measuring ~6-7mm in diameter I educated her about this condition I discussed operative and non-operative treatment options The patient would like to proceed with aspiration Aspiration #1: The risks and benefits of aspiration, including but not limited to risk of damage to blood vessels, nerves, tendons, infection, failure to improve symptoms, increased pain, and possible need for further aspirations or surgical intervention. After obtaining written consent, I sterilely prepped the area over the volar Small finger. I then injected subcutaneously with a small amount 1% lidocaine. I then passed an 18 gauge needle into the ganglion and aspirated some dark blood, possibly consistent with a hemangioma. The patient tolerated this well and with no complications. She can follow up prn Scribed for Rhea Aguero MD by Adriel Henry medical records technician, on 06/26/25 at 2:55 PM, EST. Coding Level of Care Code New Pt Level 4 (45139) Diagnoses Mass of finger of left hand R22.32 CPT Codes Fracture Care - Fracture Billing Code: Fracture Billing Code ([id number])
[2025-06-26 14:37] VITALS: BMI 38.2
--- OUTSIDE RECORDS SUMMARY | 2025-06-26 15:29 | XMS_ITS | Encounter Summary ---
Author Organization [employer] Address [address] [place] [address] [address] [place] [address] Care Team Providers Care Data Acquisition Technician Name Role Phone Ruth Ontiveros MD Primary Care Provider Reason for Visit * Reason Comments Med Refill Encounter Details Date Type Department Care Team (Late st Contact Info) Description 11/03/2022 Refill [facility] [address] [place] [address] Ruth Ontiveros MD [address] [place] [address] Social History Tobacco Use Types Packs/Day Years [...] on filedocumented in this encounter Care Teams Data Acquisition Technician Relationship Specialty Start Date End Date Ruth Ontiveros MD [address] [place] [address] PCP - General Family Medicine 10/04/13 documented as of this encounter
--- OUTSIDE RECORDS SUMMARY | 2025-06-26 15:29 | XMS_ITS | Encounter Summary ---
Author Organization [email or web address] Address [address] [place] [address] Care Team Providers Care Smash Fixer Name Role Phone Ruth Ontiveros MD Primary Care Provider [phone] Encounter Details Date Type Department Care Team ([facility] st Contact Info) Description 03/27/2025 Orders Only [facility] [address] [place] [address] Ruth Ontiveros MD [address] [place] [address] Social History Tobacco Use Types Packs/Day Years Used Date Smoking Tobacco: Never Smokeless Tobacco: Never Alcohol Use Standard Drinks/Week Comments Never 0 (1 standard drink = 0.6 oz pur e alcohol) Depression Answer Date Recorded Patient Health Questionnaire-9 Score 5 08/09/2024 Patient Health Questionnaire-9 Score 5 08/09/2024 Last PHQ-9: Questionnaire Data Not on file 1 10/09/2023 Housing Stability Answer Date Recorded What is your housing situation today? I have prasanna delaney 07/13/[address] you li ve. Do you have problems with any of the following? None of the above 07/13/2024 Food Insecurity Answer Date Recorded Within the past 12 months, y ou worried that your food would run out before you got money to buy more: Never True 07/13/2024 Within the past 12 months,th e food you bought just didn't last and you didn't have enough money to get more: Never True Transportation Answer Date Recorded In the past 12 months, has l ack of transportation kept you from medical appts, meetings, work or from getting things needed for daily living? No 07/13/2024 Utilities Answer Date Recorded In the past 12 months, has t he electric, gas, oil or water company threatened to shut off services in your home? No 07/13/2024 Depression Answer Date Recorded Patient Health Questionnaire-2 Score 1 08/09/2024 Internet Access Answer Date Recorded Internet Access Q1 Yes 07/13/2024 Internet Access Q2 Not on file 07/13/2024 Comments No Sex and Gender Information Value Date Recorded [...] Diagnoses Not on filedocumented in this encounter Additional Health Concerns Assessment Noted Time PHQ-9 Depression Total Score: 5 08/09/20 24 9:20 AM EST documented as of this encounter Care Teams Smash Fixer Relationship Specialty Start Date End Date Ruth Ontiveros MD [address] [place] [id number] PCP - General Family Medicine 10/04/13 documented as of this encounter
--- OUTSIDE RECORDS SUMMARY | 2025-06-26 15:30 | XMS_ITS | Clinical Summary ---
Author Organization [employer] Address [address] [facility] [address] [place] [address] Care Team Providers Care Volunteer Manager Name Role Phone Ruth Ontiveros MD Primary Care Provider [phone] Allergies No known active allergies Medications cholecalciferol (Vitamin D-3) 25 MCG (1000 UT) capsule Take 1 capsule by mouth in the morning. 2 Active gabapentin (Neurontin) 300 MG capsule TAKE 1 CAPSULE BY MOUTH AT BEDTIME NEEDED FOR PAIN X30 DAYS 2 Active metFORMIN (Glucophage) 500 MG tablet TAKE 1 TABLET BY MOUTH 2 TIMES PER DAY WITH MEALS FOR OBESITY FOR 30 DAYS 3 Active levothyroxine (Synthroid, Levoxyl) 200 MCG tabletIndication s:Hypothyroidism , unspecified type Take 1 tablet (200 mcg) by mouth Once per day. 90 tablet 3 4 08/10/20 25 Active levothyroxine (Synthroid, Levoxyl) 25 MCG tablet Take 1 tablet (25 mcg) by mouth before breakfast. 90 tablet 3 4 08/10/20 25 Active clotrimazole (Lotrimin) 1 % cream Apply to affected areas twice daily as directed x 2-4 wks 30 g 2 5 Active Active Problems Problem Noted Date Diagnosed Date Levoscoliosis of thoracolumbar spine 03/26/2023 Lumbar spondylosis 03/26/2023 Muscle spasm of back 03/26/2023 Sacroiliitis 03/26/2023 Spinal stenosis of lumbar re gion without neurogenic claudication 03/26/2023 History of cholecystectomy 08/28/2013 Irregular periods 11/11/2012 Hypothyroidism 08/05/2012 Assessment & Plan (02/12/2023 10:19 AM EDT): Uncontrolled, refers taking it daily, waiting at least 30 min for breakfast, will add 25 mcg to complete 225mcg, told to get restested in 6 weeks, will leave orders Vitamin D deficiency 08/05/2012 Calcific tendinitis of shoulder 08/05/2012 Obesity 08/05/2012 Encounters Date Type Department Care Team Description 06/05/2025 11:00 AM EDT Office Visit [facility] [address] [place] [phone] Samra Nassar MD Finger mass, left (Primary Dx) 06/05/2025 Travel 04/20/2025 Orders Only [facility] [address] [place] [address] Ruth Ontiveros MD 04/16/2025 8:45 AM EDT Office Visit [facility] [address] [place] [address] Ruth Ontiveros MD Hypothyroidism, unspecified type (Primary Dx); Atypical chest pain 04/16/2025 Travel 04/06/2025 Patient Outreach [address] [address] Ruth Ontiveros MD Pre-visit Planning (SDOH screening negative and Tobacco screening negative) 04/05/2025 9:00 AM EDT Procedure Visit [facility] [address] [place] [phone] Shanon Porter CNM Visit for pelvic exam (Primary Dx); Goldie infection of flexural skin; Need for hepatitis B screening test 04/05/2025 Results Follow-Up [address] [address] Shanon Porter CNM Hemoglobin A1c, Hepatitis B surface antigen, EIA, Hepatitis B Core Antibody, Total, Hepatitis B Surface Antibody, Qualitative 04/05/2025 Travel 04/04/2025 Telephone [facility] [address] [place] [phone] Shanon Porter, MIGUEL chart prep 03/27/2025 Telephone [facility] [address] [facility] [place] [address] Ruth Ontiveros MD Results 03/27/2025 Orders Only [facility] [address] [facility] [place] [address] Ruth Ontiveros MD 03/26/2025 Orders Only [facility] [address] [facility] [place] [address] Ruth Ontiveros MD 03/26/2025 Telephone [facility] [address] [facility] [place] [address] Ruth Ontiveros MD from Last 3 Months Immunizations Immunization Administration Dates Next Due Influenza injectable quadriv alent IIV4 with preservative 09/30/2021,09/07/2017 Influenza injectable quadriv alent preservative free 11/29/2023,06/24/2022,09/02/2020,2018,11/16/2018 Influenza, Split (incl. jacob fied surface antigen) 07/01/2012 Influenza, seasonal, injecta ble, preservative free 08/09/2024 Pfizer Covid-19 Vaccine 12+ 08/09/2024 Tdap 11/29/2023,05/05/2021,11/16/2018 Family History Medical History Relation Name Comments rhabdomyosarcoma Daughter Jeniffer Stroke Father Heart disease Mother Relation Name Status Comments Daughter Jeniffer Father Alive Mother Alive Social History Tobacco Use Types Packs/Day Years Used Date Smoking Tobacco: Never Smokeless Tobacco: Never Tobacco Cessation:Counseling Given: Not Answered Alcohol Use Standard Drinks/Week Comments Never 0 [...] Q2 Not on file 07/13/2024 Comments No Intention Date Recorded No desire to become (finding) 0 04/05/2025 Sex and Gender Information Value Date Recorded Sex Assigned at Female 07/27/2022 10:21 AM EDT Legal Sex Female 10:21 AM EDT Gender Identity Choose not to disclose 10:21 AM EDT Sexual Orientation Choose not to disclose 2021 10:21 AM EDT Last Filed Vital Signs Vital Sign Reading Time Taken Comments Blood Pressure 140/88 06/05/2025 10:45 AM EDT Pulse 80 06/05/2025 10:45 AM EDT Temperature 36.6 C (97.9 F) 06/05/2025 10:45 AM EDT Respiratory Rate 17 06/05/2025 10:45 AM EDT Oxygen Saturation 98% 04/16/2025 8:59 AM EDT Inhaled Oxygen Concentration - - Weight 94.1 kg (207 lb 6.4 oz) 06/05/2025 10:45 AM EDT Height 157.5 cm (5' 2 ) 06/05/2025 10:45 AM EDT Body Mass Index 37.93 06/05/2025 10:45 AM EDT Plan of Treatment Health Maintenance Due Date Last Done Comments CT Colonography 1980 Colonoscopy 1980 FIT 1980 Sigmoidoscopy 1980 Hepatitis A Vaccines (1 of 2 - Risk 2-dose series) 1997 Influenza Vaccine (#1) 2025 , 11/29/2023, 06/24/2022, Additional history exists Mammogram 07/15/2025 07/15/2024, 06/27, 07/04/2022, Additional history exists Alcohol/Substance Use Screening 08/09/2025 08/09/2024 Depression Screening 08/09/2025 08/09/2024, 08/09/20 24 FOBT 08/14/2025 08/14/2024 Disability Screening 04/05/2026 04/05/2025 Family Planning (PISQ) 04/05/2026 04/05/2025 SDOH Screening 04/06/2026 04/06/2025 Tobacco Screening 06/05/2026 06/05/2025 Colorectal Cancer Screening 08/14/2027 FIT DNA/Cologuard 08/14/2027 08/14/2024 Cervical Cancer Screening 04/01/2028 HPV/Cotest 04/01/2028 04/01/2023, 09/07/2017 Pap Smear 04/01/2028 04/01/2023 Zoster Vaccines (1 of 2) 2028 Lipid Panel 08/09/2029 08/09/2024, 01/25, 08/26/2022, Additional history exists DTaP/Tdap/Td Vaccines (5 - Td or Tdap) 11/28/2033 11/29/2023, 05/05/2021, 11/16/2018, Additional history exists RSV Patients and Patients Aged 60 years or older (1 - 1-dose 75+ series) 2053 COVID-19 Vaccine Completed 08/09/2024, 12/2023, 09/10/2021, Additional history exists HIV Screening Completed 08/09/2024 Hepatitis C Screening Completed 08/09/2024 HIB Vaccines Aged Out No longer eligi ble based on patient's age to complete this topic HPV Vaccines Aged Out No longer eligi ble based on patient's age to complete this topic Hepatitis B Vaccines Discontinued IPV Vaccines Aged Out No longer eligi ble based on patient's age to complete this topic Meningococcal B Vaccine Aged Out No l onger eligible based on patient's age to complete this topic Meningococcal Vaccine Aged Out No megan clinton eligible based on patient's age to complete this topic Pneumococcal Vaccine: Pediatrics (0 to 5 Years) and At-Risk Patients (6 to 49) Years Aged Out No longer eligible based on patient's age to complete this topic RSV under 20 months Aged Out No longe r eligible based on patient's age to complete this topic Rotavirus Vaccines Aged Out No longer eligible based on patient's age to complete this topic Procedures Procedure Name Priority Date/Time Associated Diagnosis Comments T4, FREE Routine 04/20/2025 8:42 AM EDT TSH W/REFLEX TO FT4 Routine 04/20/2025 8 :42 AM EDT Hypothyroidism, unspecified type ECG 12-LEAD Routine 04/16/2025 10:27 AM EDT Atypical chest pain HEPATITIS B SURFACE ANTIBODY, QUALITATIVE Routine 04/05/2025 9:33 AM EDT Need for hepatitis B screening test HEPATITIS B CORE AB TOTAL Routine 04/05/2025 9:33 AM EDT Need for hepatitis B screening test HEPATITIS B SURFACE ANTIGEN, EIA Routine 04/05/2025 9:33 AM EDT Need for hepatitis B screening test HEMOGLOBIN A1C Routine 04/05/2025 9:33 AM EDT Goldie infection of flexural skin T4, FREE Routine 03/26/2025 9:45 AM EDT TSH W/REFLEX TO FT4 Routine 03/26/2025 9 :45 AM EDT Hypothyroidism, unspecified type LAB COLOGUARD COLON CANCER SCREEN Routine 08/14/2024 5:40 AM EST Screening for colon cancer HEPATITIS C AB W/REFL TO HCV RNA, QN, PCR Routine 08/09/2024 9:50 AM EST PE (physical exam), annual HIV 1/2 ANTIGEN/ANTIBODY, FOURTH GENERATION W/RFL Routine 08/09/2024 9:50 AM EST PE (physical exam), annual LIPID PANEL, STANDARD Routine 08/09/2024 9:50 AM EST Hypothyroidism, unspecified type Class 2 severe obesity with serious comorbidity and body mass index (BMI) of 39.0 to 39.9 in adult, unspecified obesity type (CMS/HCC) BI MAMMOGRAM SCREENING TOMOSYNTHESIS BILATERAL Routine 07/15/2024 7:30 AM EDT IMAGE-GUIDED PAP W/AGE BASED SCR PROTOCOLS Routine 04/01/2023 12:00 AM EDT from Last 3 Months or Most Recently Relevant to Health Maintenance Results * (ABNORMAL) TSH W/Reflex to FT4 (04/20/2025 8:42 AM EDT) Only the most recent of2 resultswithin the time period is included. TSH reflex Free T4 6.66(H) 0.32 - 4.0 uIU/mL [facility] Blood Venous blood specimen / Unknown 04/20/2025 8:42 AM EDT 04/20/2025 1:50 PM EDT us Ruth Ontiveros MD LAB BLOOD ORDERABLES Final Resul t [facility] [address] [place] [phone] * T4, Free (04/20/2025 8:42 AM EDT) Only the most recent of2 resultswithin the time period is included. Free T4 (Free Thyroxine) 0.92 0.71 - 1.85 ng/dL [facility] 04/20/2025 8:42 AM EDT 04/20/2025 1:50 PM EDT Ruth Ontiveros MD LAB BLOOD ORDERABLES Final Resul t Performing Organization Address [facility] Co de Phone Number [facility] [address] [place] [phone] * ECG 12 lead (04/16/2025 10:27 AM EDT) Ruth Bynum MD - 04/16/2025 10:27 AM EDT NSR No acute process Ruth Ontiveros MD ECG ORDERABLES Final Result * Hepatitis B surface antigen, EIA (04/05/2025 9:33 AM EDT) Pathologist [facility] Hepatitis B Surface Ag Negative Negative [facility] Blood Venous blood specimen / Unknown 04/05/2025 9:33 AM EDT 04/05/2025 11:43 AM EDT Shanon Porter [facility] LAB BLOOD ORDERABLES Kelly l Result Performing Organization Address [facility] Co de Phone Number [facility] [address] [place] [phone] * Hepatitis B Core Antibody, Total (04/05/2025 9:33 AM EDT) Pathologist [facility] Hepatitis B Core Antibody Nonreactive Nonreactive [facility] Blood Venous blood specimen / Unknown 04/05/2025 9:33 AM EDT 04/05/2025 11:43 AM EDT Shanon Porter [facility] LAB BLOOD ORDERABLES Kelly l Result Performing Organization Address [facility] Co de Phone Number [facility] [address] [place] [phone] * Hepatitis B Surface Antibody, Qualitative (04/05/2025 9:33 AM EDT) ~Hepatitis B Surface Antibody REACTIVE Nonreactive [facility] Comment:REACTIVE: > 11.99 mI U/mL Blood Venous blood specimen / Unknown 04/05/2025 9:33 AM EDT 04/05/2025 11:43 AM EDT Shanon Porter [facility] LAB BLOOD ORDERABLES Kelly l Result Performing Organization Address [facility] de Phone Number [facility] [address] [place] [phone] * Hemoglobin A1c (04/05/2025 9:33 AM EDT) Hemoglobin A1c 5.4 <6.0 % [facility] Comment:Hemoglobin A1C Refer ence Range Adults: 4.8 - 6.0 % Non diabetic: < 6.0 % Goal: < 7.0 %Additional Action Suggested: > 8.0 %Note: Hemoglobin A1c results are invalid for patients with abnormal amounts of HbF. Blood transfusions may impact the HbA1c concentration in the patient sample. Estimated Average Glucose 108 mg/dL [facility] Comment:eAG = Estimated ave rage glucose which is %A1C expressed asaverage glucose, using the formula of the W3M-AcwepczOaziudw Glucose study (ADAG), Diabetes Care, Vol.31,#8,2007 Blood Venous blood specimen / Unknown 04/05/2025 9:33 AM EDT 04/05/2025 11:43 AM EDT Shanon Porter [facility] LAB BLOOD ORDERABLES Kelly l Result Performing Organization Address [facility] Co de Phone Number [facility] [address] [place] [phone] * Cologuard?? colon cancer screening (08/14/2024 5:40 AM EST) Cologuard Result Negative Negative 08/20/20 12:37 AM EST [employer] (CLIA #:[id number]) Comment: NEGATIVE TEST RESULT. A negative Cologuard result indicates a low likelihood that a colorectal cancer (CRC) or advanced adenoma (adenomatous polyps with more advanced pre-malignant features) is present. The chance that a person with a negative Cologuard test has a colorectal cancer is less than 1 in 1500 (negative predictive value >99.9%) or has an advanced adenoma is less than 5.3% (negative predictive value 94.7%). These data are based on a prospective cross-sectional study of 10,000 individuals at average risk for colorectal cancer who were screened with both Cologuard and colonoscopy. (Yaquelin Ramirez et al, N Engl J Med 2014;370(14):8792-5569) The normal value (reference range) for this assay is negative. COLOGUARD RE-SCREENING RECOMMENDATION: Periodic colorectal cancer screening is an important part of preventive healthcare for asymptomatic individuals at average risk for colorectal cancer. Following a negative Cologuard result, the [place] [employer] Society and U.S. Multi-Society Task Force screening guidelines recommend a Cologuard re-screening interval of 3 years. References: [place] [employer] Guideline for Colorectal Cancer Screening: https://www.cancer.org/cancer/tctni-dhzayl-nwprcq/atvmuduwb-rqbdoolip-lbwcfch/ac s-rec ommendations.html.; Lester DK, Severiano GARCIA, Isaak IrelandK, Colorectal Cancer Screening: Recommendations for Physicians and Patients from the U.S. Multi-Society Task Force on Colorectal Cancer Screening , Am J Gastroenterology 2017; 112:9313-1958. TEST DESCRIPTION: Composite algorithmic analysis of stool DNA-biomarkers with hemoglobin immunoassay. Quantitative values of individual biomarkers are not reportable and are not associated with individual biomarker result reference ranges. Cologuard is intended for colorectal cancer screening of adults of either sex, 45 years or older, who are at average-risk for colorectal cancer (CRC). Cologuard has been approved for use by the U.S. FDA. The performance of Cologuard was established in a cross sectional study of average-risk adults aged 50-84. Cologuard performance in patients ages 45 to 49 years was estimated by sub-group analysis of near-age groups. Colonoscopies performed for a positive result may find as the most clinically significant lesion: colorectal cancer [4.0%], advanced adenoma (including sessile serrated polyps greater than or equal to 1cm diameter) [20%] or non- advanced adenoma [31%]; or no colorectal neoplasia [45%]. These estimates are derived from a prospective cross-sectional screening study of 10,000 individuals at average risk for colorectal cancer who were screened with both Cologuard and colonoscopy. (Yaquelin Smith al, N Engl J Med 2014;370(14):9886-5840.) Cologuard may produce a false negative or false positive result (no colorectal cancer or precancerous polyp present at colonoscopy follow up). A negative Cologuard test result does not guarantee the absence of CRC or advanced adenoma (pre-cancer). The current Cologuard screening interval is every 3 years. ([place] [employer] and U.S. Multi-Society Task Force). Cologuard performance data in a 10,000 patient pivotal study using colonoscopy as the reference method can be accessed at the following location: www.[employer]/results. Additional description of the Cologuard test process, warnings and precautions can be found at www.[employer]. Stool specimen (specimen) 08/14/2024 5:40 AM EST 08/15/2024 11:14 AM EST Ruth Ontiveros MD LAB MOLECULAR DIAGNOSTICS ORDERA BLES Final Result [employer] (CLIA #:[id number]) [place] [address], [place] [phone] * Hepatitis C Antibody with Reflex to HCV, RNA, Quantitative, Real-Time PCR (08/09/2024 9:50 AM EST) Hepatitis C Antibody Nonreactive Nonreactive [facility] Comment:Antibodies to HCV no t detected; does not exclude early acuteHCV infection. Blood Venous blood specimen / Unknown 08/09/2024 9:50 AM EST 08/09/2024 2:19 PM EST us Ruth Ontiveros MD LAB BLOOD ORDERABLES Final Resul t Performing Organization Address City/[facility]/ZIP Co de Phone Number [facility] [address] [place] [phone] * HIV-1/2 Antigen and Antibodies, Fourth Generation, with Reflexes (08/09/2024 9:50 AM EST) HIV AB/AG Nonreactive Nonreactive [facility] Comment:HIV-1 p24 Ag and/or HIV-1/HIV-2 Ab not detected.A test result that is nonreactive does not exclude thepossibility of exposure to or infection with HIV-1 and/orHIV-2. Nonreactive results in this assay for individualswith prior exposure to HIV-1 and/or HIV-2 may be due toantigen and antibody levels that are below the limit ofdetection of this assay.The [employer] HIV Ag/Ab Combo assay result andsupplemental assay results should be interpreted inconjunction with the patient's clinical presentation,history and other laboratory results. If the results areinconsistent with clinical evidence, additional testing issuggested to confirm the result. Blood Venous blood specimen / Unknown 08/09/2024 9:50 AM EST 08/09/2024 2:19 PM EST us Ruth Ontiveros MD LAB BLOOD ORDERABLES Final Resul t [facility] [address] [place] [phone] * (ABNORMAL) Lipid Panel, Standard (08/09/2024 9:50 AM EST) Triglycerides 175(H) <150 mg/dL [facility] Comment:Desirable Triglyceri de: less than 150 mg/dLBorderline High Triglyceride 150-199 mg/dLHigh Triglyceride: 200-499 mg/dLVery High Triglyceride: greater than or equal to 5OO mg/dL Cholesterol 164 <200 mg/dL [facility] Comment:Desirable Cholestero l: less than 200 mg/dLBorderline High Cholesterol: 200-239 mg/dLHigh Cholesterol: greater than 239 mg/dL LDL Cholesterol Calculated 88 <100 mg/dL [facility] Comment:Desirable LDL: less than 100 mg/dLNear Optimal/Above Optimal LDL: 110- 129 mg/dLBorderline High LDL: 130-159 mg/dLHigh LDL: 160-189 mg/dLVery High LDL: greater than or equal to 190 mg/dL HDL Cholesterol 41 >40 mg/dL [facility] Comment:Desirable HDL: great er than 40 mg/dL Note: This HDL assay may give artificially low results in patients with liver disease. Blood Venous blood specimen / Unknown 08/09/2024 9:50 AM EST 08/09/2024 2:19 PM EST us Ruth Ontiveros MD LAB BLOOD ORDERABLES Final Resul t [facility] [address] [place] [phone] * BI Mammogram Screening Tomosynthesis Bilateral (07/15/2024 7:30 AM EDT) Anatomical Region Laterality Modality Breast Bilateral Mammography 07/15/2024 7:30 AM EDT Narrative 07/28/2024 10:11 AM EDT [address] [place] [address] Mammography Report Signed Patient: Chet Blanco MR#: [id number] : 1980 Acct:[id number] Age/Sex: 43 / F ADM Date: 07/15/24 Loc: HO.MAMMO Attending Dr: Ruth Ontiveros MD Ordering Physician: Ruth Ontiveros MD Results: 1Negati ve Date of Service: 07/15/24 Follow Up: 1 Year From [facility]a Mammogram Procedure(s): MM tomosynthesis screening BI Accession Number(s): [id number] cc: Ruth Ontiveros MD EXAMINATION: MM SCREENING DIGITAL BREAST TOMOSYNTHESIS, BILATERAL CLINICAL INFORMATION: Screening. Asymptomatic. COMPARISON: Mammography: Comparison is made with available priors TECHNIQUE: Digital breast mammography with tomosynthesis is performed in both the craniocaudal and mediolateral oblique views along with computer-aided detection (CAD). FINDINGS: There are scattered areas of fibroglandular density (ACR BI-RADS breast composition Category b). There are no significant masses, abnormal calcifications, or other abnormalities. MM/MM tomosynthesis screening BI IMPRESSION: No mammographic evidence of malignancy. ASSESSMENT: BI-RADS BI-RADS 1 - Negative RECOMMENDATION: Routine annual mammography screening. 1 year F/U This examination should not preclude the clinical evaluation of a suspicious palpable abnormality. This patient's information was entered into a reminder system with a target due date for their next mammogram. Electronically signed by: Camila Donovan DO 07/28/2024 10:08 AM EDT Dictated By: Camila Donovan DO Signed By: <Electronically signed by Camila Donovan DO in OV> 07/28/24 1008 DD/ TD/TT: 07/15/2445 Blank Driller: Procedure Note Donotuseinterpreter, Image - [facility] [address] [place], [place] [address] Mammography Report Signed Patient: Ema Blanco#: [id number] : 1980Acct:[id number] Age/Sex: 43 / FADM Date: 07/15/24 Loc: HO.MAMMO Attending Dr: Ruth Ontiveros MD Ordering Physician: Ruth Ontiveros MDResults: 1Negati ve Date of Service: 07/15/24Follow Up: 1 Year From Orig ina Mammogram Procedure(s): MM tomosynthesis screening BI Accession Number(s): [id number] cc: Ruth Ontiveros MD EXAMINATION: MM SCREENING DIGITAL BREAST TOMOSYNTHESIS, BILATERAL CLINICAL INFORMATION: Screening. Asymptomatic. COMPARISON: Mammography: Comparison is made with available priors TECHNIQUE: Digital breast mammography with tomosynthesis is performed in both the craniocaudal and mediolateral oblique views along with computer-aided detection (CAD). FINDINGS: There are scattered areas of fibroglandular density (ACR BI-RADS breast composition Category b). There are no significant masses, abnormal calcifications, or other abnormalities. MM/MM tomosynthesis screening BI IMPRESSION: No mammographic evidence of malignancy. ASSESSMENT: BI-RADS BI-RADS 1 - Negative RECOMMENDATION: Routine annual mammography screening. 1 year F/U This examination should not preclude the clinical evaluation of a suspicious palpable abnormality. This patient's information was entered into a reminder system with a target due date for their next mammogram. Electronically signed by: Camila Donovan DO 07/28/2024 10:08 AM EDT RP Dictated By: Camila Donovan DO Signed By: <Electronically signed by Camila Donovan DO in OV> 07/28/24 1008 DD/ 0730 TD/TT: 07/15/24 0745 Blank Driller: Ruth Ontiveros MD IM BI PROCEDURES Edited Result - Final * Image-Guided Pap with Age-Based Screening Protocols (04/01/2023 12:00 AM EDT) Comment [facility] [place] [facility] Comment: This order for age-based cervical cancer and STI screening follows ACOG guidelines(PB 168, 140, NFM522). See individual assays for performing site location. Clinical Information: None given [facility] LMP: NONE GIVEN [facility] Prev. PAP: NONE GIVEN [facility] Prev. BX: NONE GIVEN [facility] SOURCE: None given [facility] Statement Of Adequacy: [facility] Comment: Satisfactory for evaluation. Endocervical/transformation zone component absent. Interpretation/ Result: Cytology Results: Negative for intraepithelial lesion or malignancy. [facility] Infection Shift in vaginal renan suggestive of bacterial vaginosis. [facility] COMMENT: This Pap test has been evaluated with computer assisted technology. [facility] [employer] [facility]: [facility] Comment: RXB, CT(ASCP) CT screening location: [place] [address] (Always Message) [facility] Comment: EXPLANATORY NOTE: The Pap is a screening test for cervical cancer. It is not a diagnostic test and is subject to false negative and false positive results. It is most reliable when a satisfactory sample, regularly obtained, is submitted with relevant clinical findings and history, and when the Pap result is evaluated along with historic and current clinical information. HPV nRNA E6/E7 Not Detected Not Detected [facility] [place] [facility] Comment: Methodology: Juice Scaleman-Mediated Amplification This assay detects E6/E7 viral messenger RNA (mRNA) from 14 high-risk HPV types (16,18,31,33,35,39,45,51,52,56,58,59,66,68). Cervical sources are required for HPV testing. If a vaginal source from a patient who has had a total hysterectomy with removal of cervix was submitted, please contact the testing laboratory for alternative testing options. For additional information, please refer to http://education.[employer].com/faq/KPD286k2 (This link if provided for information/ educational purposes only.) 04/01/2023 04/02/2023 7:1 5 AM EDT Narrative [facility] - 04/05/2023 10:57 AM EDT FASTING: UNKNOWN Shanon Porter [facility] BLOOD ORDERABLES Kelly lira Result [facility] [address], [place] [address] [facility] [address] [place] [address] from Last 3 Months or Most Recently Relevant to Health Maintenance Insurance [facility] Care Teams Volunteer Manager Relationship Specialty Start Date End Date Ruth Ontiveros MD [address] [place] [id number] PCP - General Family Medicine 10/04/13
== END 2025-06-26 15:25 | disposition home or self-care (01) ==
LOC: HO.HOS 14:08
PROVIDERS: PCP Student in an Organized Health Care Education/Training Program; Visit Provider Orthopaedic Surgery
DX: R22.32 Localized swelling, mass and lump, left upper limb (principal); M67.442 Ganglion, left hand
CPT/HCPCS: 20612; 99204

== ENCOUNTER → 2025-06-26 14:07 | Outpatient (BNVA) | payer OTHER, SELFPAY | PROVIDERS: PCP Student in an Organized Health Care Education/Training Program; Visit Provider Orthopaedic Surgery | DX: R22.32 Localized swelling, mass and lump, left upper limb (principal) | CPT/HCPCS: 20612; 99202; J2003 ==